=== PATIENT | female | born 2005 | race Hispanic/Latino ===

== ENCOUNTER 2024-05-06 20:07 | Emergency (ER) | payer SELFPAY ==
[2024-05-06] MEDS ORDERED: Ondansetron PF 4 MG/2 ML Vial ONE (21:08)
[2024-05-06 21:32] LABS: BHCG - Serum Negative (NEGATIVE); Pregs Control Background? CLEAR/WHITE (CLR/WHITE); Pregs Control Bar Appear? YES (CONTROL BAR)
[2024-05-06 21:38] LABS: ALT (SGPT) 9 U/L (8-55); AST (SGOT) 15 U/L (5-34); Albumin 4.6 g/dL (3.5-5.0); Alkaline Phosphatase 47 U/L (40-100); Anion Gap 13 mmol/L (10-20); BUN (Urea Nitrogen) 14 mg/dL (7.0-18.7); Bilirubin, Total 0.4 mg/dL (0.2-1.2); Calc. Creatinine Clearance 0 mL/min (70-130); Calcium 9.5 mg/dL (7.8-10.44); Carbon Dioxide 21 mmol/L (22-29); Chloride 108 mmol/L (98-107); Estimated GFR 110; Globulin 3.8 g/dL (2.4-3.5); Glucose 95 mg/dL (70-105); Lipase 45 U/L (8-78); Potassium 3.5 mmol/L (3.5-5.1); Protein, Total 8.4 g/dL (6.0-8.3); Sodium 138 mmol/L (136-145)
[2024-05-06 21:57] LABS: Platelet Count 218 10x3/uL (150-450)
[2024-05-06 21:58] LABS: Hematocrit 35.4 % (34.9-44.5); Hemoglobin 10.1 g/dL (12.0-15.5); Mean Corpuscular HGB CONC 28.5 g/dL (32.0-36.0); Mean Corpuscular Hemoglobin 18.8 pg (27.0-33.0); Mean Corpuscular Volume 65.9 fL (81.6-98.3); RBC Distribution Width 16.6 % (11.5-14.5); Red Blood Cell (RBC) Count 5.37 10x6/uL (3.90-5.03); White Blood Cell (WBC) Count 9.26 10x3/uL (3.5-10.5)
[2024-05-06 22:03] LABS: Bilirubin Neg (Negative); Blood, Urine Negative (Negative); Glucose, Urine (Dipstick) Normal (Negative); Ketone, Urine Negative (Negative); Leukocyte Negative (Negative); Nitrite Negative (Negative); Protein, Urine (Dipstick) 30 mg/dl (Neg-Trace); Urobilinogen Normal mg/dL (Less than 2)
[2024-05-06 22:10] LABS: Anisocytosis SLIGHT = 6-15 cells (100X) (0-5/hpf); Band 14 % (5-11); Elliptocytes SLIGHT = 2-5 cells (100X) (0-1/hpf); Hypochromia MODERATE=16-30 cells (100X) (0-5/hpf); Large Platelets SLIGHT (None Seen); Lymphocytes 5 % (28-48); MDiff Complete? YES; Microcytosis MODERATE=15-30 cells (100X) (0-5/hpf); Monocytes 2 % (0-4); Neutrophil 79 % (31-61); Ovalocytes SLIGHT = 2-5 cells (100X) (0-1/hpf); Platelet Adequacy Comment Appears Adequate; Reflex for Review?? YES; Vacuoles SLIGHT
[2024-05-06 22:30] LABS: Clarity Extra Turbid (Clear)
[2024-05-06 23:20] LABS: Bacteria/HPF 2+ HPF (None Seen); CAUTI Indications for Culture Fever or rigors; RBC/HPF None Seen HPF (0-3); Squamous Epithelial 0-3 HPF (0-3); WBC/HPF 0-3 HPF (0-3)
[2024-05-06 23:21] LABS: Mucous/LPF 2+ LPF (<2+)
[2024-05-06 23:22] LABS: Urine Culture Reflex No No
[2024-05-07] MEDS ORDERED: Ketorolac Tromethamine 30 MG (1 mL) VIAL ONE (01:18)
== END 2024-05-07 05:06 | disposition home or self-care (01) ==
LOC: CSHERS 20:07
DX: N10 Acute pyelonephritis (principal)
CPT/HCPCS: 36415; 74176; 80053; 81001; 83605; 83690; 83735; 84703; 85025; 85060; 87040; 87428; 96361; 96374; 96375; J1885; J2405

== ENCOUNTER 2024-05-07 14:32 | Emergency (ER) | payer SELFPAY ==
[2024-05-07] MEDS ORDERED: HYDROcodone/Acetaminophen 10/325 mg Tablet ONE (15:03)
[2024-05-07] MEDS ORDERED: Ketorolac Tromethamine 30 MG (1 mL) VIAL ONE (15:04)
== END 2024-05-07 15:26 | disposition home or self-care (01) ==
LOC: CSHERS 14:32
DX: R10.9 Unspecified abdominal pain (principal)
CPT/HCPCS: 96372; 99283; J1885

== ENCOUNTER 2024-12-05 12:40 | Emergency (ER) | payer SELFPAY ==
[2024-12-05] MEDS ORDERED: cefTRIAXone (ROCEPHIN) 1 GM VIAL ONE (13:37)
[2024-12-05 13:55] LABS: Glucose, Urine (Dipstick) Normal (Negative); Leukocyte 25 (Negative); Protein, Urine (Dipstick) Negative (Neg-Trace); Specific Gravity, Urine 1.015 (1.005-1.030)
[2024-12-05 13:56] LABS: Pregnancy Test - Urine (BHCG) POSITIVE (Negative); Pregu Control Background? CLEAR/WHITE (CLR/WHITE); Pregu Control Bar Appear? YES (CONTROL BAR)
[2024-12-05 14:18] LABS: Bacteria/HPF 3+ HPF (None Seen); CAUTI Indications for Culture Pelvic or flank pain; RBC/HPF None Seen HPF (0-3); WBC/HPF 0-3 HPF (0-3)
[2024-12-05 14:20] LABS: Urine Culture Reflex No No
[2024-12-05 15:32] LABS: Hematocrit 34.5 % (34.9-44.5); Hemoglobin 10.0 g/dL (12.0-15.5); Mean Corpuscular Hemoglobin 19.3 pg (27.0-33.0); Mean Corpuscular Volume 66.5 fL (81.6-98.3); Platelet Count 240 10x3/uL (150-450); Red Blood Cell (RBC) Count 5.19 10x6/uL (3.90-5.03); White Blood Cell (WBC) Count 5.83 10x3/uL (3.5-10.5)
[2024-12-05 15:42] LABS: ALT (SGPT) 10 U/L (Less than 34); AST (SGOT) 19 U/L (11-34); Albumin 4.7 g/dL (3.1-4.5); Alkaline Phosphatase 40 U/L (40-110); Anion Gap 17 mmol/L (10-20); BUN (Urea Nitrogen) 12 mg/dL (7.0-18.7); Bilirubin, Total 0.4 mg/dL (0.3-1.2); Calc. Creatinine Clearance 0 mL/min (70-130); Calcium 9.9 mg/dL (7.8-10.44); Carbon Dioxide 19 mmol/L (22-29); Chloride 108 mmol/L (98-107); Globulin 3.6 g/dL (2.4-3.5); Glucose 85 mg/dL (70-105); Potassium 3.8 mmol/L (3.5-5.1); Sodium 140 mmol/L (136-145)
[2024-12-05 17:31] LABS: Anisocytosis SLIGHT = 6-15 cells (100X) (0-5/hpf); MDiff Complete? YES; Platelet Adequacy Comment Appears Adequate
[2024-12-06 05:36] LABS: Chlam.trachomatis by PCR,Urine Not Detected (NotDetected); GC N.gonorrhoeae PCR,UrineVOID Not Detected (NotDetected)
== END 2024-12-05 18:23 | disposition home or self-care (01) ==
LOC: CSHERS 12:40
DX: N39.0 Urinary tract infection, site not specified (principal); Z33.1 Pregnant state, incidental
CPT/HCPCS: 36415; 76801; 80053; 81001; 81025; 84702; 85025; 87480; 87491; 87510; 87591; 87660; 93976; 96372; 99284; J0696

== ENCOUNTER 2024-12-19 11:23 | Emergency (ER) | payer MEDICAID ==
[2024-12-19] MEDS ORDERED: Ondansetron PF 4 MG/2 ML Vial ONE (12:36)
[2024-12-19 13:02] LABS: Hematocrit 32.1 % (34.9-44.5); Hemoglobin 9.4 g/dL (12.0-15.5); Mean Corpuscular Hemoglobin 19.4 pg (27.0-33.0); Mean Corpuscular Volume 66.3 fL (81.6-98.3); Platelet Count 213 10x3/uL (150-450); Red Blood Cell (RBC) Count 4.84 10x6/uL (3.90-5.03); White Blood Cell (WBC) Count 5.49 10x3/uL (3.5-10.5)
[2024-12-19 13:11] LABS: ALT (SGPT) 7 U/L (Less than 34); AST (SGOT) 18 U/L (11-34); Albumin 4.3 g/dL (3.1-4.5); Alkaline Phosphatase 33 U/L (40-110); Anion Gap 14 mmol/L (10-20); BUN (Urea Nitrogen) 11 mg/dL (7.0-18.7); Bilirubin, Total 0.4 mg/dL (0.3-1.2); Calc. Creatinine Clearance 0 mL/min (70-130); Calcium 9.2 mg/dL (7.8-10.44); Carbon Dioxide 18 mmol/L (22-29); Chloride 106 mmol/L (98-107); Globulin 3.3 g/dL (2.4-3.5); Glucose 71 mg/dL (70-105); Lipase 45 U/L (8-78); Potassium 3.9 mmol/L (3.5-5.1); Sodium 134 mmol/L (136-145)
[2024-12-19 13:46] LABS: Glucose, Urine (Dipstick) Normal (Negative); Leukocyte Negative (Negative); Protein, Urine (Dipstick) 15 mg/dl (Neg-Trace); Specific Gravity, Urine 1.010 (1.005-1.030)
[2024-12-19 13:53] LABS: Anisocytosis SLIGHT = 6-15 cells (100X) (0-5/hpf); Microcytosis MODERATE=15-30 cells (100X) (0-5/hpf); Ovalocytes SLIGHT = 2-5 cells (100X) (0-1/hpf); Polychromasia SLIGHT = 2-3 cells (100X) (0-2/hpf)
[2024-12-19 13:54] LABS: MDiff Complete? YES; Platelet Adequacy Comment Appears Adequate
[2024-12-19 14:00] LABS: Bacteria/HPF 1+ HPF (None Seen); CAUTI Indications for Culture Pregnancy; RBC/HPF None Seen HPF (0-3); WBC/HPF 0-3 HPF (0-3)
[2024-12-19 14:02] LABS: Urine Culture Reflex Yes Yes
== END 2024-12-19 15:32 | disposition home or self-care (01) ==
LOC: CSHERS 11:23
DX: O99.891 Other specified diseases and conditions complicating pregnancy (principal); R10.2 Pelvic and perineal pain; Z3A.08 8 weeks gestation of pregnancy
CPT/HCPCS: 76856; 80053; 81001; 83690; 84702; 85025; 87086; 96374; J2405

== ENCOUNTER 2024-12-22 23:09 | Emergency (ER) | payer MEDICAID, OTHER ==
[2024-12-22 23:41] LABS: Glucose, Urine (Dipstick) Normal (Negative); Leukocyte Negative (Negative); Protein, Urine (Dipstick) 15 mg/dl (Neg-Trace); Specific Gravity, Urine 1.030 (1.005-1.030)
[2024-12-22 23:57] LABS: Bacteria/HPF None Seen HPF (None Seen); CAUTI Indications for Culture Dysuria,urgency,freq; RBC/HPF None Seen HPF (0-3); WBC/HPF None Seen HPF (0-3)
[2024-12-22 23:59] LABS: Urine Culture Reflex No No
[2024-12-23] MEDS ORDERED: Ondansetron PF 4 MG/2 ML Vial ONE (00:46)
[2024-12-23] MEDS ORDERED: Acetaminophen 500 MG TAB ONE (00:46)
== END 2024-12-23 01:47 | disposition home or self-care (01) ==
LOC: CSHERS 23:09
DX: O21.0 Mild hyperemesis gravidarum (principal); O99.511 Diseases of the respiratory system complicating pregnancy, first trimester; J02.9 Acute pharyngitis, unspecified; Z3A.08 8 weeks gestation of pregnancy
CPT/HCPCS: 81001; 87428; 96374; J2405

== ENCOUNTER 2025-02-21 01:39 | Emergency (ER) | payer OTHER ==
[2025-02-21 02:31] LABS: Glucose, Urine (Dipstick) Normal (Negative); Leukocyte 100 (Negative); Protein, Urine (Dipstick) 15 mg/dl (Neg-Trace); Specific Gravity, Urine 1.025 (1.005-1.030)
[2025-02-21 02:42] LABS: Bacteria/HPF 1+ HPF (None Seen); CAUTI Indications for Culture Pelvic or flank pain; RBC/HPF None Seen HPF (0-3); WBC/HPF 0-3 HPF (0-3)
[2025-02-21 02:43] LABS: Urine Culture Reflex No No
[2025-02-21 21:21] LABS: GC by PCR, Vaginal Swab Not Detected (NotDetected)
[2025-02-21 22:40] LABS: Tric.vaginalis PCR,Vaginal Sw Not Detected (NotDetected)
== END 2025-02-21 04:38 | disposition home or self-care (01) ==
LOC: CSHERS 01:39
DX: O23.42 Unspecified infection of urinary tract in pregnancy, second trimester (principal); N39.0 Urinary tract infection, site not specified; O98.812 Other maternal infectious and parasitic diseases complicating pregnancy, second trimester; B37.31 Acute candidiasis of vulva and vagina; Z3A.16 16 weeks gestation of pregnancy
CPT/HCPCS: 81001; 87480; 87510; 87591; 87660; 87661; 99284

== ENCOUNTER 2025-02-28 01:05 | Emergency (ER) | payer OTHER | END 2025-02-28 02:49 | disposition home or self-care (01) | LOC: CSHERS 01:05 | DX: O9A.212 Injury, poisoning and certain other consequences of external causes complicating pregnancy, second trimester (principal); S30.11XA Contusion of abdominal wall, initial encounter; Z3A.18 18 weeks gestation of pregnancy; W22.8XXA Striking against or struck by other objects, initial encounter; Y92.511 Restaurant or cafe as the place of occurrence of the external cause | CPT/HCPCS: 76815; 99284 ==

== ENCOUNTER 2025-03-23 15:38 | Day surgery (SDC) | payer OTHER ==
[2025-03-23] MEDS ORDERED: hydrALAZINE 20 MG/ML VIAL SLOW IVP PRN (16:38)
== END 2025-03-23 17:02 | disposition home or self-care (01) ==
LOC: CSHLD/OP 15:38
PROVIDERS: ATTEND Family Medicine
DX: O46.92 Antepartum hemorrhage, unspecified, second trimester (principal); O98.812 Other maternal infectious and parasitic diseases complicating pregnancy, second trimester; B37.9 Candidiasis, unspecified; O23.512 Infections of cervix in pregnancy, second trimester; Z3A.21 21 weeks gestation of pregnancy; Z79.899 Other long term (current) drug therapy
CPT/HCPCS: 99283

== ENCOUNTER 2025-03-29 01:52 | Emergency (ER) | payer OTHER ==
[2025-03-29 03:28] LABS: Platelet Count 208 10x3/uL (150-450)
[2025-03-29 03:29] LABS: #Basophils Less than 0.03 10x3/uL (0.0-0.2); #Eosinophils 0.13 10x3/uL (0.0-0.5); #Monocytes 0.79 10x3/uL (0.0-1.1); #Neutrophils 5.81 10x3/uL (1.5-8.4); %Basophils 0.2 % (0.0-2.0); %Eosinophils 1.5 % (0.0-6.0); %Lymphocytes 20.4 % (18.0-47.0); %Monocytes 9.2 % (0.0-10.0); %Neutrophils 67.9 % (40.0-75.0); Hematocrit 25.5 % (34.9-44.5); Hemoglobin 7.8 g/dL (12.0-15.5); Mean Corpuscular Hemoglobin 19.7 pg (27.0-33.0); Mean Corpuscular Volume 64.6 fL (81.6-98.3); Red Blood Cell (RBC) Count 3.95 10x6/uL (3.90-5.03); White Blood Cell (WBC) Count 8.57 10x3/uL (3.5-10.5)
== END 2025-03-29 03:56 | disposition home or self-care (01) ==
LOC: CSHERS 01:52
DX: O98.512 Other viral diseases complicating pregnancy, second trimester (principal); B34.9 Viral infection, unspecified; O99.012 Anemia complicating pregnancy, second trimester; D50.9 Iron deficiency anemia, unspecified; Z3A.22 22 weeks gestation of pregnancy
CPT/HCPCS: 36415; 85025; 87081; 87428; 87430